=== PATIENT | male | born 1985 | race American Indian/Alaskan Native ===

== ENCOUNTER 2021-08-12 10:21 | Outpatient (CLI) | payer OTHER ==
--- NOTE | 2021-08-12 12:43 | XRay Report ---
LUMBOSACRAL SPINE 3 VIEWS INDICATION: LOW BACK PAIN. COMPARISON: None. IMPRESSION: Normal alignment. No significant discogenic DJD or facet arthropathy. No acute osseous or soft tissue abnormality. Signer Name: Toni Mcguire Jr, MD Signed: 08/12/2021 12:39 PM Workstation Name: [id number]
== END 2021-08-12 10:22 | disposition home or self-care (01) ==
LOC: XRAY 10:21
PROVIDERS: ATTEND Internal Medicine
DX: M54.50 Low back pain, unspecified (principal)
CPT/HCPCS: 72100

== ENCOUNTER 2021-11-07 13:29 | Outpatient (CLI) | payer OTHER | END 2021-11-07 13:30 | disposition home or self-care (01) | LOC: LABHHL 13:29 | PROVIDERS: ATTEND Surgery | DX: L91.8 Other hypertrophic disorders of the skin (principal) | CPT/HCPCS: 88304 ==

== ENCOUNTER 2021-11-29 10:44 | Outpatient (CLI) | payer OTHER ==
[~2021-11-29 10:44] MED LIST: MIDAZOLAM 2 MG/2 ML INJ ONE; fentaNYL 100 MCG/2 ML INJ ONE
--- NOTE | 2021-11-29 17:58 | Magnetic Resonance Report ---
MR lumbar spine wo con INDICATION / CLINICAL INFORMATION: 36 years Male; M54.10 SCIATICA NERVE PAIN. TECHNIQUE: Multisequence, multiplanar images of the lumbar spine were obtained. COMPARISON: None available. FINDINGS: ALIGNMENT: There appears be minimal retrolisthesis at L5-S1 with disc desiccation mild disc space james rowing. There is no significant lumbar scoliosis. VERTEBRAE:There are not milder endplate changes at L5-S1. There is no significant edema of the lumbar vertebral bodies. VISUALIZED SPINAL CORD: The motion degrades image quality. However, the distal spinal cord appears to demonstrate appropriate signal intensity and terminates at L1-2. [id number] ANALYSIS: L1-2: No significant abnormality. L2-3: No significant abnormality. L3-4: No significant abnormality. L4-5: There is no disc protrusion or significant stenosis. L5-S1: There is a broad-based left lateral disc protrusion and annular tear which effaces the left la teral recess with mild displacement of the origin of left S1 nerve root sheath at. There is mild to m oderate neural foraminal narrowing bilaterally PARASPINAL SOFT TISSUES: No significant abnormality. ADDITIONAL FINDINGS: No epidural collections are identified. IMPRESSION: 1. This broad-based left-sided disc protrusion and annular tear which mildly displaces the origin of the left S1 nerve root sheath. There is mild to moderate foraminal narrowing bilaterally. Signer Name: Eitan Jimenez MD Signed: 11/29/2021 5:54 PM Workstation Name: [id number]
== END 2021-11-29 10:45 | disposition home or self-care (01) ==
LOC: MRI 10:44
PROVIDERS: ATTEND Internal Medicine
DX: M54.10 Radiculopathy, site unspecified (principal)
CPT/HCPCS: 72148; J2250; J3010